=== PATIENT | male | born 1995 | race Caucasian/White ===

== ENCOUNTER 2017-02-13 13:22 | Emergency (ER) | payer OTHER ==
[2017-02-13 13:41] VITALS: O2SAT 97
--- NOTE | 2017-02-13 14:15 | EDPHY ---
H & P Time Seen by Provider: 02/13/17 14:09 HPI/ROS: This patient was hiking 2 days prior to arrival and he prop himself up onto large rocks suspending his feet several inches from the ground while using his arms to support his weight. His left hand slipped and he struck the ulnar aspect of his distal forearm against a rock. Since that time he has had 3/10 achy discomfort to the affected area with associated moderate to severe tenderness to touch. There is also a superficial abrasion to the area. He came in to rule out fracture. He is accompanied by his girlfriend. The came in by private vehicle ROS: Constitutional: No fevers. No other complaints Integumentary: No significant discomfort from the abrasion. No redness is noted by the patient or discharge. Musculoskeletal: No other injuries. Neuro: No numbness or tingling the affected extremity Cardiovascular: No discoloration to the affected arm except for bruising to the affected area. 5 point ROS is otherwise negative. Past Medical/Surgical History: Otherwise healthy Smoking Status: Former smoker Physical Exam: Physical Exam Vital signs are normal. General: No acute distress Eyes: Pupils equal and react to light. Extraocular motions are intact. Lungs: No respiratory distress. Cardiac: Brisk capillary refill is intact throughout. Pulses are 2+ and symmetric in the affected extremity. Skin: No rash or pallor. Superficial abrasions evident to the left distal forearm with no erythema, foreign bodies discharge or warmth to touch. No full- thickness wound. Extremities: Atraumatic normal except for left forearm Left forearm: Patient has mild ecchymosis underlying a 3 cm superficial abrasion to the distal ulnar aspect of the forearm. There is no associated wrist tenderness. No elbow tenderness. No radial tenderness. Neuro: Alert with no sensorimotor deficits in the affected extremity. Constitutional: Initial Vital Signs Temperature (C) 36.4 C 02/13/17 13:37 Heart Rate 57 L 02/13/17 13:37 Respiratory Rate 16 02/13/17 13:37 Blood Pressure 132/70 H 02/13/17 13:37 O2 Sat (%) 97 02/13/17 13:37 O2 Delivery Mode Room Air Allergies/Adverse Reactions: No Known Allergies Allergy (Unverified 02/13/17 13:40) Home Medications: Medication Instructions Recorded Adderall 10 MG (*) 02/13/17 MDM/Departure - MDM Diagnostics: Forearm x-ray: Negative for fracture by my interpretation Imaging: I viewed and interpreted images myself ED Course/Re-evaluation: I counseled the patient regarding forearm contusion. No evidence of fracture. No evidence of wound infection to his minor abrasion. - Depart Disposition: Home, Routine, Self-Care Clinical Impression: Contusion, forearm Qualifiers: Encounter type: initial encounter Laterality: left Qualified Code(s): S50.12XA - Contusion of left forearm, initial encounter Forearm abrasion Qualifiers: Encounter type: initial encounter Laterality: left Qualified Code(s): S50.812A - Abrasion of left forearm, initial encounter Condition: Good Instructions: Contusion in Adults (ED), Abrasion (ED) Additional Instructions: Diagnosis: 1. Form contusion 2. Form abrasion Plan: Ibuprofen and Tylenol for discomfort Clean the abrasion daily Symptoms should improve over the next 3-5 days. Return for any significant worsening despite the treatment plan. Referrals: NONE *PRIMARY CARE P,. [Primary Care Provider] - As per Instructions
[2017-02-13 14:19] VITALS: RESP 18
[2017-02-13 14:23] VITALS: BP 153/62; PULSE 78; TEMP 98
== END 2017-02-13 14:22 | disposition home or self-care (01) ==
LOC: CED 13:22
DX: S50.12XA Contusion of left forearm, initial encounter (principal); S50.812A Abrasion of left forearm, initial encounter; Z87.891 Personal history of nicotine dependence; W22.8XXA Striking against or struck by other objects, initial encounter; Y99.8 Other external cause status; Y93.01 Activity, walking, marching and hiking
CPT/HCPCS: 73090-PO